=== PATIENT | male | born 1950 | race Caucasian/White ===

== ENCOUNTER → 2017-03-04 | Outpatient (CLI) | payer BC ==
[~2017-03-04] MED LIST: ASPI81TA28 PO; FISHOIL PO; MULTTAB58 PO; POTA8CAP6 PO; SIMV-151 PO; TRIA75TA53 PO
[2017-03-04 11:14] LABS: ALT/SGPT 30 U/L (12-78); AST/SGOT 14 U/L (15-37); BLOOD UREA NITROGEN 21 mg/dl (7-18); BUN/CREATININE RATIO 17.6 (10-20); CALCIUM 8.9 mg/dl (8.5-10.1); CARBON DIOXIDE 29 mmol/L (21-32); CHLORIDE 107 mmol/L (98-107); GLUCOSE 102 mg/dl (70-99); POTASSIUM 3.7 mmol/L (3.5-5.1); SODIUM 143 mmol/L (136-145)
[2017-03-04 11:17] LABS: ALB/GLOB RATIO 1.1 (0.9-2); ALKALINE PHOSPHATASE 59 U/L (45-117)
[2017-03-04 12:17] LABS: ESTIMATED AVERAGE GLUCOSE 120 mg/dl; HA1C FLAG Normal (Normal)
--- NOTE | 2017-03-09 11:59 | CODING QUERY MEDICAL NECESSITY ---
SUPPORTING DIAGNOSIS NEEDED Dr. Mcleod, A supporting diagnosis is required for the test/procedure performed on this patient in order for us to be reimbursed by the patient's insurance. Please provide a supporting diagnosis for the following test/procedure listed below next to the test name along with your signature. *If there is no additional diagnosis for this patient that would support the following test/procedure please document that below next to the test/procedure. Test(s)/Procedure(s) that require a supporting diagnosis: * 16866 GLYCATED HEMOGLOBIN DIAGNOSIS: DATE OF SERVICE: 03/04/17 Provider Signature: Date: Thank you Lee Torres [facility] Information Management Once completed, please kindly fax back to [phone] For questions please call [phone]
== END | disposition home or self-care (01) ==
LOC: C.LABBC 09:05
PROVIDERS: ATTEND Family Medicine
DX: I10 Essential (primary) hypertension (principal); R73.03 Prediabetes

== ENCOUNTER → 2017-12-31 | Outpatient (CLI) | payer BC ==
--- NOTE | 2017-12-31 13:09 | DIAGNOSTIC IMAGING REPORT ---
RIBS BILATERAL WITH PA CHEST HISTORY: 67 years-old Male R05 [id number] Rib pain on right [id number] acute cough with right-sided rib pain COMPARISON: Chest radiograph 07/16/2015 TECHNIQUE: PA view of the chest with multiple views of the bilateral ribs for a total of 10 images FINDINGS: Cardiomediastinal and hilar silhouettes are within normal limits. Atherosclerosis of the aorta. There is no pneumothorax, pleural effusion, focal airspace consolidation or overt pulmonary edema. Degenerative changes are seen within the shoulders and spine. Remote left mid clavicle fracture. No acute displaced rib fracture identified. IMPRESSION: 1. No acute process of the chest. 2. No acute displaced rib fracture or pneumothorax identified. The above report was generated using voice recognition software. It may contain grammatical, syntax or spelling errors. Electronically signed by: Christopher Jimenez M.D. 12/31/2017 1:08 PM Dictated Date/Time: 12/31/2017 1:05 PM
== END | disposition home or self-care (01) ==
LOC: C.RADBC 12:36
PROVIDERS: ATTEND Nurse Practitioner Adult Health
DX: R05 Cough (principal); R07.81 Pleurodynia

== ENCOUNTER → 2018-01-05 | Outpatient (CLI) | payer BC ==
--- NOTE | 2018-01-05 11:28 | DIAGNOSTIC IMAGING REPORT ---
BILIARY ULTRASOUND CLINICAL HISTORY: R07.81 Rib pain on right side R10.811 Right upper quadrant abdominal pain COMPARISON STUDY: CT scan performed April 2012, renal ultrasound March 2016 FINDINGS: The pancreas was obscured. The liver was of increased echogenicity a finding suggestive of hepatic steatosis. There is a 1 cm right lobe hepatic cyst. No gallstones are visualized. There is no ductal dilatation. The common bile duct measures 5 mm. There is no right-sided hydronephrosis. There is a septated lower pole right renal cyst measuring 9 cm. This remains unchanged from a prior ultrasound performed March 2016 IMPRESSION: 1. Nondiagnostic evaluation the pancreas 2. Probable hepatic steatosis 3. Ultrasonographically normal gallbladder. No ductal dilatation 4. Stable septated lower pole right renal cyst measuring 9 cm Electronically signed by: Kevin Dubois M.D. 01/05/2018 11:27 AM Dictated Date/Time: 01/05/2018 11:25 AM
== END | disposition home or self-care (01) ==
LOC: C.ULTR 10:20
PROVIDERS: ATTEND Nurse Practitioner Adult Health
DX: R07.81 Pleurodynia (principal); R10.811 Right upper quadrant abdominal tenderness; N28.1 Cyst of kidney, acquired

== ENCOUNTER → 2018-02-25 | Outpatient (CLI) | payer BC ==
[2018-02-25 11:21] LABS: ALBUMIN 3.7 gm/dl (3.4-5.0); ALKALINE PHOSPHATASE 63 U/L (45-117); ALT/SGPT 34 U/L (12-78); AST/SGOT 20 U/L (15-37); BLOOD UREA NITROGEN 20 mg/dl (7-18); CALCIUM 9.1 mg/dl (8.5-10.1); CARBON DIOXIDE 27 mmol/L (21-32); GLUCOSE 105 mg/dl (70-99); LIPASE 116 U/L (73-393); POTASSIUM 3.1 mmol/L (3.5-5.1); SODIUM 139 mmol/L (136-145)
== END | disposition home or self-care (01) ==
LOC: C.LABBC 08:03
PROVIDERS: ATTEND Nurse Practitioner Adult Health
DX: R10.811 Right upper quadrant abdominal tenderness (principal)

== ENCOUNTER → 2018-03-10 | Outpatient (CLI) | payer BC ==
[2018-03-10 11:29] LABS: BLOOD UREA NITROGEN 21 mg/dl (7-18); CREATININE 1.22 mg/dl (0.60-1.40); GLUCOSE 95 mg/dl (70-99)
[2018-03-10 11:30] LABS: CALCIUM 8.9 mg/dl (8.5-10.1); CARBON DIOXIDE 30 mmol/L (21-32); POTASSIUM 3.7 mmol/L (3.5-5.1); SODIUM 140 mmol/L (136-145)
== END | disposition home or self-care (01) ==
LOC: C.LABBC 07:45
PROVIDERS: ATTEND Physician Assistant Medical
DX: I10 Essential (primary) hypertension (principal); E87.6 Hypokalemia

== ENCOUNTER 2022-06-12 10:55 | Inpatient (IN) ==
--- NOTE | 2022-06-12 11:34 | CT Scan Report ---
CT head/brain wo con CLINICAL HISTORY: 72 years-old Male with Stroke Alert. Acute strokelike symptoms TECHNIQUE: Multiple axial CT images of the head were obtained without contrast. A dose lowering tech nique was utilized adhering to the principles of ALARA. CT DOSE: 537.48 mGy.cm COMPARISON: None. FINDINGS: No acute intracranial hemorrhage, midline shift, intracranial mass, hydrocephalus, territorial ischem ia or abnormal extra-axial collection. Mild involutional changes. White matter hypodensities suggest chronic microvascular ischemic disease. Cerebral vascular calcifications also noted. The calvarium is intact. The paranasal sinuses, mastoid air cells, and middle ear cavities are clear . IMPRESSION: No acute intracranial abnormality. ACT 112: Negative or not required by law. The above report was generated using voice recognition software. It may contain grammatical, syntax o r spelling errors. Electronically signed by: Terence Jimenez M.D. 06/12/2022 11:32 AM
[2022-06-12 11:41] LABS: Hematocrit (blood only) 44.4 % (40.1-51.0); Hemoglobin 14.4 g/dl (14.0-18.0); Mean Corpuscular Hemoglobin 30.4 pg (25.0-34.0); Mean Corpuscular Hgb Conc 32.4 g/dL (32.0-36.0); Mean Corpuscular Volume 93.9 fL (80.0-100.0); Mean Platelet Volume 8.8 fL (9.4-12.4); Platelet Count 189 K/uL (130-400); RDW Coefficient of Variation 13.4 % (11.5-14.5); RDW Standard Deviation 46.3 fL (36.4-46.3); Red Blood Count 4.73 M/uL (4.63-6.08); White Blood Count 6.22 K/ul (4.8-10.8)
--- NOTE | 2022-06-12 11:42 | Emergency Department Note ---
History of Present Illness General Chief complaint: Neuro Symptoms/Deficit Stated complaint: BLURRED VISION, REF BY DR OG BAZAN SYMPTOMS Time Seen by Provider: 06/12/22 11:24 Source: patient, RN notes reviewed and old records reviewed Mode of arrival: ambulatory Limitations: no limitations History of Present Illness Patient is a 72-year-old male who was sent over to the emergency department by 's office after having strokelike symptoms he was fine yesterday woke up at 7:00 in the morning with blurry vision in both of his eyes. He says when he closes 1 eye it still blurry so is definitely both he says he describes it as no particular visit visual field cut he says is not tunnel vision he says when he reads a word he can see the beginning of it but he can see the end and he can see 1 side versus the other. Denies headache or head trauma. No recent illness. no fever chills. no numbness or weakness or difficulty speaking or s wallowing. no chest pain or shortness of breath. he does take a baby aspirin 81 mg a day. He feels slightly off balance he thinks due to his vision he has no history of visual problems. No eye pain. He said the eye doctor did a full eye evaluation and did not think it was ocular. Home Medications Medication Instructions Recorded Confirmed Type multivitamin (Daily Multi-Vitamin 1 tab PO QAM 04/25/19 06/12/22 History tablet) omega 9-zqa-nwc-fish oil 1,000 mg 2 cap PO BID 09/10/20 06/12/22 History (120 mg-180 mg) capsule sildenafil 100 mg tablet 100 mg PO .COMPLEX PRN sexual 11/28/21 06/12/22 Rx activity #18 tabs lisinopril 40 mg tablet 40 mg PO QAM #90 tabs 05/29/22 06/12/22 Rx potassium chloride 20 mEq 20 meq PO QAM #90 tabs 05/29/22 06/12/22 Rx tablet,extended release simvastatin 40 mg tablet 20 mg PO QPM #90 tabs 05/29/22 06/12/22 Rx spironolactone 25 mg tablet 25 mg PO DAILY #90 tabs 05/29/22 06/12/22 Rx aspirin 81 mg tablet,delayed 81 mg PO QPM 06/12/22 06/12/22 History release Allergies Allergy/AdvReac Type Severity Reaction Status Date / Time bacitracin AdvReac Intermediate neosporin Verified 06/12/22 15:15 - skin irritation neomycin AdvReac Intermediate neosporin Verified 06/12/22 15:15 - skin irritation polymyxin B AdvReac Intermediate neosporin Verified 06/12/22 15:15 - skin irritation Past Med/Surg History Medical History Benign prostatic hyperplasia with urinary obstruction and other lower urinary tract symptoms Colon polyp Cyst of right kidney Encounter for pre-operative examination History of COVID-19 11/29/20. symptoms: cough and loss of taste/smell. History of DVT (deep vein thrombosis) ~2011 Right leg DVT r/t extensive traveling at the time. no anticoagulants currently needed. Hx of malignant neoplasm of skin Hyperlipidemia Hypertension Inhibited sexual excitement Prediabetes pt denies Sleep apnea cpap Surgical History H/O arthroscopic knee surgery History of colonoscopy History of hip replacement right History of local excision of skin lesion Family History Father Heart disease Other No family history of adverse response to anesthesia Denies family history of Ovarian cancer Prostate cancer Myocardial infarction Breast cancer Colorectal cancer Social History Smoking Status: Never smoker Second Hand Exposure: No; Hx Alcohol Use: No Hx Substance Use: No Preferred Language: Malaysian Communication Ability: Effective Visual Impairment: No Limitations Hearing Ability: Normal Chief Knowledge Officer Required: No Beliefs That Will Affect Care: None marital status: Current Living Situation: Spouse Current Living Situation Comment: home with spouse. current occupational status: retired Other Information That Helps Us Care for You: No Feels Safe at Home: Yes Safety Concerns: Feels Safe At This Time Childhood Exposure to Second-Hand Smoke: No caffeine: Yes during the past year weight has: remained stable Dental Care, Regularly: Yes Physical Activity Frequency: 3-4 Times per Week Seatbelt Use: always Sunscreen Use: Yes Assistive Devices: Glasses Review of Systems A total of 10 systems reviewed and were otherwise negative Physical Exam Vital Signs Vital Signs - 24 hr 06/12/22 10:56 06/12/22 11:53 06/12/22 12:15 Temperature 36.8 C Temperature Source Temporal Artery Scan Pulse Rate 67 Pulse Rate [Apical] 62 64 Respiratory Rate 16 16 18 Respiratory Effort / Characteristics Non-Labored Spontaneous Non-Labored Spontaneous Non-Labored Spontaneous Respiratory Depth Normal Normal Normal Blood Pressure 112/67 Blood Pressure [Right Arm] 122/70 126/75 Blood Pressure Mean 82 Blood Pressure Mean [Right Arm] 87 92 Pulse Oximetry 95 96 96 Oxygen Delivery Method Room Air Room Air Room Air Sepsis Recent Fever Within 48 Hours No Sepsis New/Unexplained Change in Mental Status No Sepsis Action Taken by Nursing No Action Required General: Well developed well nourished older male who appears in no acute distress, breathing comfortably on room air. Normal speech HEENT: Normal cephalic atraumatic. Pupils are equal round and reactive to light. Extraocular movements are intact. Oropharynx is pink with moist mucous membranes. No swelling of the mouth lips or tongue. Neck: Supple with a midline trachea. No meningeal signs or stiffness, no JVD or bruits. No Stridor. Chest: Clear to auscultation bilaterally. No wheezes or rhonchi. No increased work of breathing. Heart: Regular rate and rhythm without murmurs or gallops. Abdomen: Soft nontender, nondistended without rebound guarding or rigidity. Extremities: No cyanosis clubbing or edema. No calf tenderness or assymetry Spine/Back. Non tender to palpation. No CVA tenderness Skin: Good turgor without rashes. Neurologic exam: Cranial nerves two through 12 are intact. Motor and sensation are intact and symmetrical throughout. Course Administered Medications Sodium Chloride (Nss 1000ml) 1,000 mls @ 150 mls/hr IV .[id number] [facility] Stop: 06/12/22 20:24 Last Admin: 06/12/22 14:01 Dose: 150 mls/hr Documented By: NMS Discontinued Medications Ioversol (Optiray 320 125ml) 120 ml IV ONCE ONE Stop: 06/12/22 11:54 Last Admin: 06/12/22 11:53 Dose: 120 ml Documented By: RACHEL Critical Care Time Critical Care Time: Yes Total Critical Care Time: 36 Due to the patient's acute strokelike symptoms, need to call a stroke alert, multiple imaging and consultation as well as consideration for tPA and other acute interventions as well as frequent reassessment, I have personally spent greater than 36 minutes of critical care time in the direct management of this patient. This includes bedside care, interpretation of diagnostic studies, and testing, discussion with consultants, patient, and family members, and other required patient management activities. This 30 minutes is in excess of all separately billable procedures. Medical Decision Making Differential Diagnosis Stroke, acute neurologic disease, ocular disease, MS, intracranial mass or hemorrhage, electrolyte or metabolic abnormality Medical Records Attestation: I reviewed the patient's medical records. Home Medications Current Medication List: was personally reviewed by me Laboratory Data Attestation: I reviewed the patient's lab results. Result diagrams: 06/12/22 11:25 06/12/22 11:25 Lab Results 06/12/22 06/12/22 06/12/22 Range/Units 11:25 11:25 11:25 WBC 6.22 (4.8-10.8) K/ul RBC 4.73 (4.63-6.08) M/uL Hgb 14.4 (14.0-18.0) g/dl POC Hgb (14.0-18.0) g/dl Hct 44.4 (40.1-51.0) % POC Hct (42-52) % MCV 93.9 (80.0-100.0) fL MCH 30.4 (25.0-34.0) pg MCHC 32.4 (32.0-36.0) g/dL RDW Std Deviation 46.3 (36.4-46.3) fL RDW Coeff of Markell 13.4 (11.5-14.5) % Plt Count 189 (130-400) K/uL MPV 8.8 L (9.4-12.4) fL PT 10.8 (9.0-12.0) Seconds INR 1.0 (0.9-1.1) APTT 23.9 (21.0-31.0) Seconds PTT Ratio 0.9 POC Sodium (135-144) mmol/L Sodium 137 (136-145) mmol/L POC Potassium (3.3-5.0) mmol/L Potassium 4.3 (3.5-5.1) mmol/L POC Chloride (101-112) mmol/L Chloride 106 (98-107) mmol/L Carbon Dioxide 24 (21-32) mmol/L POC Total CO2 (24-31) mmol/L Anion Gap 7 (3-11) POC Anion Gap (16-25) mmol/L POC BUN (7-18) mg/dl BUN 31 H (6-23) mg/dl Creatinine 1.42 H (0.6-1.4) mg/dl POC Creatinine (0.6-1.3) mg/dl Est Cr Clr Drug Dosing 50.6 ml/min Est GFR ( Amer) 56.0 ml/min Est GFR (Non-Af Amer) 48.3 ml/min BUN/Creatinine Ratio 21.8 H (10-20) Glucose 108 H (70-99(Fasting)) mg/dl POC Glucose (other) (70-99) mg/dl Calcium 9.5 (8.5-10.1) mg/dl POC Ioniz Calcium Chuy (1.12-1.32) mmol/l Magnesium 1.9 (1.7-2.4) mg/dl Total Bilirubin 0.6 (0.2-1.0) mg/dl AST 18 (13-39) U/L ALT 19 (7-52) U/L Alkaline Phosphatase 55 (34-104) U/L Troponin I High Sens (0-20) pg/ml Total Protein 6.7 (6.0-8.3) gm/dl Albumin 4.1 (3.4-5.0) gm/dl Globulin 2.6 (2.5-4.0) gm/dl Albumin/Globulin Ratio 1.6 (0.9-2) SARS-CoV-2, RNA, NAAT (NEGATIVE) 06/12/22 06/12/22 06/12/22 Range/Units 11:25 11:35 11:52 WBC (4.8-10.8) K/ul RBC (4.63-6.08) M/uL Hgb (14.0-18.0) g/dl POC Hgb 14.6 (14.0-18.0) g/dl Hct (40.1-51.0) % POC Hct 43 (42-52) % MCV (80.0-100.0) fL MCH (25.0-34.0) pg MCHC (32.0-36.0) g/dL RDW Std Deviation (36.4-46.3) fL RDW Coeff of Markell (11.5-14.5) % Plt Count (130-400) K/uL MPV (9.4-12.4) fL PT (9.0-12.0) Seconds INR (0.9-1.1) APTT (21.0-31.0) Seconds PTT Ratio POC Sodium 140 (135-144) mmol/L Sodium (136-145) mmol/L POC Potassium 4.5 (3.3-5.0) mmol/L Potassium (3.5-5.1) mmol/L POC Chloride 107 (101-112) mmol/L Chloride (98-107) mmol/L Carbon Dioxide (21-32) mmol/L POC Total CO2 23 L (24-31) mmol/L Anion Gap (3-11) POC Anion Gap 15.0 L (16-25) mmol/L POC BUN 30 H (7-18) mg/dl BUN (6-23) mg/dl Creatinine (0.6-1.4) mg/dl POC Creatinine 1.5 H (0.6-1.3) mg/dl Est Cr Clr Drug Dosing ml/min Est GFR ( Amer) ml/min Est GFR (Non-Af Amer) ml/min BUN/Creatinine Ratio (10-20) Glucose (70-99(Fasting)) mg/dl POC Glucose (other) 112 H (70-99) mg/dl Calcium (8.5-10.1) mg/dl POC Ioniz Calcium Chuy 1.22 (1.12-1.32) mmol/l Magnesium (1.7-2.4) mg/dl Total Bilirubin (0.2-1.0) mg/dl AST (13-39) U/L ALT (7-52) U/L Alkaline Phosphatase (34-104) U/L Troponin I High Sens 5.1 (0-20) pg/ml Total Protein (6.0-8.3) gm/dl Albumin (3.4-5.0) gm/dl Globulin (2.5-4.0) gm/dl Albumin/Globulin Ratio (0.9-2) SARS-CoV-2, RNA, NAAT NEGATIVE (NEGATIVE) Imaging Data Attestation: I personally reviewed and interpreted this imaging study as follows: My Impression: CTno acute mass or hemorrhage seen Radiologist's Impression: Head CT 06/12/22 11:06 CT head/brain wo con CLINICAL HISTORY: 72 years-old Male with Stroke Alert. Acute strokelike symptoms TECHNIQUE: Multiple axial CT images of the head were obtained without contrast. A dose lowering technique was utilized adhering to the principles of ALARA. CT DOSE: 537.48 mGy.cm COMPARISON: None. FINDINGS: No acute intracranial hemorrhage, midline shift, intracranial mass, hydrocephalus, territorial ischemia or abnormal extra-axial collection. Mild involutional changes. White matter hypodensities suggest chronic microvascular ischemic disease. Cerebral vascular calcifications also noted. The calvarium is intact. The paranasal sinuses, mastoid air cells, and middle ear cavities are clear. IMPRESSION: No acute intracranial abnormality. ACT 112: Negative or not required by law. The above report was generated using voice recognition software. It may contain grammatical, syntax or spelling errors. Electronically signed by: Terence Jimenez M.D. 06/12/2022 11:32 AM Head CTA 06/12/22 11:35 CT angio head w con, CT angio neck with con CLINICAL HISTORY: 72 years-old Male with Visual changes-strokelike symptoms. Acute strokelike symptoms COMPARISON STUDY: Head CT of same day TECHNIQUE: Following the IV administration of 120 cc of Optiray, CT angiogram of the head and neck was performed from the skull base to the apex. Images are reviewed in the axial, sagittal, and coronal planes. 3-D MIPS images are created and assessed. IV contrast was administered without complication. All measuremen ts were obtained according to NASCET criteria. A dose lowering technique was utilized adhering to the principles of ALARA. CT DOSE: 636.97 mGy.cm FINDINGS: Three-vessel morphology of the thoracic aortic arch. Patency of the innominate a nd imaged subclavian arteries. Mild atherosclerotic plaque of the right carotid bulb and proximal right ICA without significant stenosis. The anterior and middle cerebral arteries are also patent. Dominant right vertebral artery. Diminutive left vertebral artery, likely developmental terminates into the left PICA. Tortuosity of the basilar artery. Posterior cerebral arteries are patent. The cerebral venous sinuses are patent. No aneurysm, dissection, high-grade stenosis or arterial occlusion. No abnormal intracranial enhancement. The lung apices are clear. No pneumothorax. Unremarkable soft tissues. Streak artifact from dental amalgam hardware. Mild mucoperiosteal thickening of the maxillary sinuses. No acute fracture. IMPRESSION: Unremarkable CTA of the head and neck without aneurysm, dissection, high-grade stenosis or arterial occlusion. ACT 112: Negative or not required by law. The above report was generated using voice recognition software. It may contain grammatical, syntax or spelling errors. Electronically signed by: Terence Jimenez M.D. 06/12/2022 12:33 PM Neck CTA 06/12/22 11:35 CT angio head w con, CT angio neck with con CLINICAL HISTORY: 72 years-old Male with Visual changes-strokelike symptoms. Acute strokelike symptoms COMPARISON STUDY: Head CT of same day TECHNIQUE: Following the IV administration of 120 cc of Optiray, CT angiogram of the head and neck was performed from the skull base to the apex. Images are reviewed in the axial, sagittal, and coronal planes. 3-D MIPS images are created and assessed. IV contrast was administered without complication. All measurements were obtained according to NASCET criteria. A dose lowering technique was utilized adhering to the principles of ALARA. CT DOSE: 636.97 mGy.cm FINDINGS: Three-vessel morphology of the thoracic aortic arch. Patency of the innominate and imaged subclavian arteries. Mild atherosclerotic plaque of the right carotid bulb and proximal right ICA without significant stenosis. The anterior and mi ddle cerebral arteries are also patent. Dominant right vertebral artery. Diminutive left vertebral artery, likely developmental terminates into the left PICA. Tortuosity of the basilar artery. Posterior cerebral arteries are patent. The cerebral venous sinuses are patent. No aneurysm, dissection, high-grade stenosis or arterial occlusion. No abnormal intracranial enhancement. The lung apices are clear. No pneumothorax. Unremarkable soft tissues. Streak artifact from dental amalgam hardware. Mild mucoperiosteal thickening of the maxillary sinuses. No acute fracture. IMPRESSION: Unremarkable CTA of the head and neck without aneurysm, dissection, high-grade stenosis or arterial occlusion. ACT 112: Negative or not required by law. The above report was generated using voice recognition software. It may contain grammatical, syntax or spelling errors. Electronically signed by: Terence Jimenez M.D. 06/12/2022 12:33 PM Brain MRI 06/12/22 12:23 MRI OF THE BRAIN WITHOUT CONTRAST CLINICAL HISTORY: Blurred vision. Evaluate for stroke. COMPARISON STUDY: Head CT and CTA of the head performed earlier today. TECHNIQUE: Utilizing a 1.5 Coreen magnet and dedicated coil, multiplanar, multiecho imaging of the brain was performed without IV contrast. FINDINGS: There is a 3.4 x 2 cm focus of restricted diffusion within right parietooccipital region consistent with acute infarct. There is minimal associated edema at this time. There is no mass effect or evidence for hemorrhage. No additional foci of acute infarction are present. Ventricular system is unremarkable. Basal cisterns are patent. There are no extra-axial collections. No intracranial masses identified on this unenhanced exam. Numerous white matter T2 hyperintense foci favor small vessel disease. Calvarial signal is within normal limits. There is mild sinus mucosal thickening. IMPRESSION: 3.4 x 2 cm right parietooccipital acute infarct. Mild edema. No mass effect or hemorrhage. ACT 112: Negative or not required by law. Electronically signed by: Lamont Laird M.D. 06/12/2022 2:17 PM ECG Data Attestation: I personally reviewed and interpreted this ECG as follows: Indication: + weakness Rate (beats per minute): 58 Rhythm: + normal sinus ECG Intervals/blocks: + Normal QRS, + Normal QT and + Normal HI ECG [place]: + Normal ECG ST segments: + Normal ST segments ECG Findings: no PACs or no PVCs Comparison ECG Date: from (07/16/15) Change: no significant change MDM Narrative This patient comes in as described above he came through triage his eye doctor sent him over for blurry vision in both eyes. The started acutely at 7:00 which is his last known well he woke up this way in fact. He had blood work drawn done in triage and CT I saw him when he came back. I was concerned about his symptoms being neurologic as the eye doctor did not think it was related to his eye and it seems like he cannot see the beginning of words in certain sides where he may have visual field cut on the left. He has no other neurologic deficits. I did call a stroke alert and talk to Dr. Braun, who is the stroke neurologist for telestroke, he has evaluated the patient and did recommend we admit the patient for MRI and further stroke type work-up. His initial CTs are unremarkable he has nothing to suggest A. fib or ischemia COVID testing was negative. he has no significant electrolyte or metabolic abnormalities. The patient is not a tPA candidate as he is well outside the window and extended window. There is no large vessel disease which would be amenable to intervention. I did consult Dr. Hoang from the hospitalist group to see the patient in the ED. The MRI did come back positive for cute infarct in the right occipital area. Impression & Plan Acute CVA (cerebrovascular accident), Visual changes, Lab test negative for COVID-19 virus, Hypertension Discharge Plan Visit Data Chief Complaint: Neuro Symptoms/Deficit Stated Complaint: BLURRED VISION, REF BY DR FOR BENI SYMPTOMS ED Provider: Chris Lock Discharge Problem: Acute CVA (cerebrovascular accident), Visual changes, Lab test negative for COVID-19 virus, Hypertension Patient Disposition: Admitted As Inpatient Discharge Instructions Interventions: ED Discharge Assessment Last Done: 06/12/22 16:20 : Hypertension Qualifiers: Hypertension type: unspecified Qualified Code(s): I10 - Essential (primary) hypertension
[2022-06-12 11:47] LABS: iSTAT Creatinine 1.5 mg/dl (0.6-1.3); iSTAT Hemoglobin 14.6 g/dl (14.0-18.0); iSTAT Ionized Calcium 1.22 mmol/l (1.12-1.32); iSTAT Potassium 4.5 mmol/L (3.3-5.0)
[2022-06-12] MEDS ORDERED: OPTIRAY 320 125ml IV ONE (11:53)
[2022-06-12 11:55] LABS: Partial Thromboplastin Ratio 0.9; Partial Thromboplastin Time 23.9 Seconds (21.0-31.0); Prothrombin Time 10.8 Seconds (9.0-12.0)
--- NOTE | 2022-06-12 12:06 | History & Physical Report ---
Date of Service June 12, 2022 Assessment & Plan (1) Blurry vision, bilateral: Plan: Stroke alert, blurry vision. Suspected occipital TIA vs CVA - Symptom Onset: 7 AM, on waking next - Last Known Normal: Evening prior to going to sleep - Initial Symptoms: Bilateral blurry vision,? Acutely worsened balance. Saw ophthalmology morning of symptom onset which was normal and not thought to be ocular per ER report. Patient had been previously established with ophthal mology for lesions of right eye both eyelids, left eye lower eyelid s/p excision 02/26/2022 and with chalazion of the left lower lobe last noted 03/17/2022. 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 - hsTrop: 5.1 - Admitting EKG: Sinus bradycardia, MD 160, QRS 88, QTc 429. No change compared to prior. No acute ST segment changes/T wave inversion No leukocytosis. Hemoglobin normal. Ionized calcium normal. - Baseline Cr: ~1.0-1.4 - Admitting Cr: 1.42, BUN/creatinine ratio 21.8 - Echo pending TSH pending, last normal 11/2021 - Lipids pending - TPA: Not indicated, last known normal greater than 4.5 hours prior - Telestroke: Seen by telestroke neurology, subtle left lower field cut appreciated during evaluation. Suspected occipital CVA versus TIA. No tPA indicated. Recommended for MRI. Given that patient was on CHIEF OPERATOR aspirin we will switch to Plavix - Convert simvastatin 20mg to atorvastatin 20mg Renal azotemia versus ALEXANDRO Creatinine very slightly elevated above baseline, 1.4 to Elevated BUN/creatinine ratio 21.8 Clinically slightly volume depleted, tacky mucous membranes. Received contrast for above. 1000cc x 1 NSS IVFM supplement @150/hr given Once passes speech eval, encourage p.o. fluids BMP qAM Hyperlipidemia CHIEF OPERATOR simvastatin 20 mg daily Lipids 05/29/2022: Cholesterol 154, LDL 85, HDL 50, triglycerides 96, Chol/HDL ratio 3.1. Hypertension CHIEF OPERATOR lisinopril 40 mg, spironolactone 25 mg CHIEF OPERATOR aspirin 81 mg daily, switching to Plavix as noted We will switch lisinopril to losartan for history of dry cough Hold antihypertensives tonight for mild azotemia and normotension, may resume tomorrow if creatinine normalizes Prediabetes A1c 05/29/2022 6.1% BMP every morning, trend BSG. If persistently greater than 140, will add SSI Hypokalemia On CHIEF OPERATOR potassium supplementation - continue 20meq KCL PO daily after passing speech/no longer NPO Right heel pain Following with podiatry Suspected plantar fasciitis Sleep apnea CPAP nightly DVT prophylaxis: SCDs, SQ Heparin due to mild creatinine increase CODE STATUS: Full code Disposition: Med/telemetry for CVA monitoring Diet: Regular. If hyperglycemic, switch to DM2 and add SSI (2) Hyperlipidemia: (3) Hypertension: (4) Hypokalemia: (5) Prediabetes: (6) Sleep apnea: History of Present Illness Primary Care Provider: Vianca Leyva DO Akshat is a 72-year-old male with a past medical history of BPH with LUTS, hyperlipidemia, hypertension, prediabetes, sleep apnea, and COVID-19 who presents to the emergency department as a stroke alert. 7am blurry vision Saw opthamologist at [facility], was referred to ER after full exam No headache, no numbness, no tingling, no weakness VIsion blurry when waking, couldn't read the end of a word just the beginning. No bright spots, no black spots, no field cuts that he noticed. Persisted for several hours. Did not have floaters. Symptoms were bilateral, vision remained blurry when covering each alternating eye. Vision is now completely back to normal. Seems to have returned ~ noontime. Lasted around 4 hours overall. No chest pain, chest pressure, or shortness of breath No fevers, chills, sweats No recent illnesses, diarrhea, or constipation. Last URI was a few weeks ago, self limited congestion/cough which improved but has a lingering dry cough. Has been on lisinopril for many years. No history of strokes, no heart attacks, no hx of arrythmia to his knowledge. +HLD.. No history of statin intolerance or sensitivity Medical History: Reviewed Medications: Reviewed Surgical History: Reviewed Allergies: Reviewed. Skin irritation w/ neosporin. Social History: No tobacco produce use current or former. Social, 2-3 times per month. No MM/recreational drug use. Code Status: Surrogate DM would be his . [phone]. Full Code. Allergies Allergy/AdvReac Type Severity Reaction Status Date / Time bacitracin AdvReac Unknown neosporin Verified 05/29/22 07:15 - skin irritation neomycin AdvReac Unknown neosporin Verified 05/29/22 07:15 - skin irritation polymyxin B AdvReac Unknown neosporin Verified 05/29/22 07:15 - skin irritation Home Medications Medication Instructions Recorded Confirmed Type multivitamin (Daily Multi-Vitamin 1 tab PO QAM 04/25/19 05/29/22 History tablet) aspirin 81 mg tablet 81 mg PO QPM 05/23/19 05/29/22 History omega 5-lzh-zje-fish oil 1,000 mg 2 cap PO BID 09/10/20 05/29/22 History (120 mg-180 mg) capsule sildenafil 100 mg tablet 100 mg PO .COMPLEX PRN sexual 11/28/21 05/29/22 Rx activity #18 tabs lisinopril 40 mg tablet 40 mg PO QAM #90 tabs 05/29/22 05/29/22 Rx potassium chloride 20 mEq 20 meq PO QAM #90 tabs 05/29/22 05/29/22 Rx tablet,extended release simvastatin 40 mg tablet 20 mg PO QPM #90 tabs 05/29/22 05/29/22 Rx spironolactone 25 mg tablet 25 mg PO DAILY #90 tabs 05/29/22 05/29/22 Rx Past Med/Surg History Medical History Benign prostatic hyperplasia with urinary obstruction and other lower urinary t ract symptoms Colon polyp Cyst of right kidney Encounter for pre-operative examination History of COVID-19 11/29/20. symptoms: cough and loss of taste/smell. History of DVT (deep vein thrombosis) ~2011 Right leg DVT r/t extensive traveling at the time. no anticoagulants currently needed. Hx of malignant neoplasm of skin Hyperlipidemia Hypertension Inhibited sexual excitement Prediabetes pt denies Sleep apnea cpap Surgical History H/O arthroscopic knee surgery History of colonoscopy History of hip replacement right History of local excision of skin lesion Family History Father Heart disease Other No family history of adverse response to anesthesia Denies family history of Ovarian cancer Prostate cancer Myocardial infarction Breast cancer Colorectal cancer Social History Smoking Status: Never smoker Second Hand Exposure: No; Hx Alcohol Use: No Hx Substance Use: No Preferred Language: Cameroonian Communication Ability: Effective Visual Impairment: No Limitations Hearing Ability: Normal Rapier Insertion Loom Fixer Required: No Beliefs That Will Affect Care: None marital status: Current Living Situation: Spouse current occupational status: retired Feels Safe at Home: Yes Childhood Exposure to Second-Hand Smoke: No caffeine: Yes during the past year weight has: remained stable Dental Care, Regularly: Yes Physical Activity Frequency: 3-4 Times per Week Seatbelt Use: always Sunscreen Use: Yes Assistive Devices: Glasses Review of Systems Review of Systems: All systems reviewed & are unremarkable except as noted in Subjective Physical Exam Physical Exam: General: A&Ox3. NAD. Cooperative. HEENT: Atraumatic, normocephalic. Pulm: CTAB A&P. -wheezes, -rales, -rhonchi. Symmetrical chest rise. No increased work of breathing. No respiratory distress. Cardiac: RRR, -mrg. Radial pulses intact and symmetrical. Abdominal: Nontender, nondistended, soft. BS present. CRANIAL NERVES: II: Pupils equal and reactive, no relative afferent pupillary defect, no VF cuts. Wearing corrective leneses, normal sharp vision while wearing these. III, IV, : EOM intact, no gaze preference or deviation, no nystagmus. V: normal sensation in V1, V2, and V3 segments bilaterally VII: no asymmetry, no nasolabial fold flattening VIII: normal hearing to speech IX, X: normal palatal elevation, no uvular deviation XI: 5/5 head turn and 5/5 shoulder shrug bilaterally XII: midline tongue protrusion MOTOR: RUE: 5/5 Shoulder internal rotation, external rotation, flexion, extension, abduction, adduction 5/5 Elbow flexion/extension, wrist flexion/extension 5/5 small engine mechanic strength, finger flexion/extension, interosseus LUE: 5/5 Shoulder internal rotation, external rotation, flexion, extension, abduction, adduction 5/5 Elbow flexion/extension, wrist flexion/extension 5/5 small engine mechanic strength, finger flexion/extension, interosseus RLE: 5/5 to hip flexion/extension, knee flexion/extension, ankle dorsiflexion/plantarflexion LLE: 5/5 to hip flexion/extension, knee flexion/extension, ankle dorsiflexion/plantarflexion REFLEXES: 2/4 patellar DTR without asymmetry. no clonus SENSORY: Normal to touch in upper and lower extremities without deficit or asymmetry COORD: Normal finger to nose and heel to jimenez, no tremor, no dysmetria Results & Data Results & Data ([facility]) Vital Signs (Past 12 Hours) Vital Signs Temp Pulse Pulse Resp BP BP Pulse Ox 06/12/22 11:53 62 16 122/70 96 06/12/22 10:56 36.8 C 67 16 112/67 95 O2 Del Method 06/12/22 11:53 Room Air 06/12/22 10:56 Room Air PG Care Time/CCT Total # of Minutes Spent Total Time Spent with Patient: Total time spent is greater than 50% in coordination of care (as documented) at patient's floor/unit and/or counseling patient: Coding Level of Care Code 42708 Initial Inpt Care Lvl 2 Diagnoses Blurry vision, bilateral H53.8 Hyperlipidemia E78.5 Hypertension I10 Hypokalemia E87.6 Prediabetes R73.03 Sleep apnea G47.30
[2022-06-12 12:07] LABS: Albumin Globulin Ratio 1.6 (0.9-2); Albumin Level 4.1 gm/dl (3.4-5.0); BUN Creatinine Ratio 21.8 (10-20); Bilirubin,Total 0.6 mg/dl (0.2-1.0); Calcium 9.5 mg/dl (8.5-10.1); Creatinine Clr Calc Pharmacy 50.6 ml/min; Est GFR (Non-African American) 48.3 ml/min; Globulin 2.6 gm/dl (2.5-4.0); Magnesium 1.9 mg/dl (1.7-2.4); Potassium 4.3 mmol/L (3.5-5.1); Total Protein 6.7 gm/dl (6.0-8.3)
--- NOTE | 2022-06-12 12:34 | CT Scan Report ---
CT angio head w con, CT angio neck with con CLINICAL HISTORY: 72 years-old Male with Visual changes-strokelike symptoms. Acute strokelike symp toms COMPARISON STUDY: Head CT of same day TECHNIQUE: Following the IV administration of 120 cc of Optiray, CT angiogram of the head and neck wa s performed from the skull base to the apex. Images are reviewed in the axial, sagittal, and coronal planes. 3-D MIPS images are created and assessed. IV contrast was administered without complication. All measurements were obtained according to NASCET criteria. A dose lowering technique was utilized a dhering to the principles of ALARA. CT DOSE: 636.97 mGy.cm FINDINGS: Three-vessel morphology of the thoracic aortic arch. Patency of the innominate and imaged subclavian arteries. Mild atherosclerotic plaque of the right carotid bulb and proximal right ICA without signif icant stenosis. The anterior and middle cerebral arteries are also patent. Dominant right vertebral a rtery. Diminutive left vertebral artery, likely developmental terminates into the left PICA. Tortuosi ty of the basilar artery. Posterior cerebral arteries are patent. The cerebral venous sinuses are pat ent. No aneurysm, dissection, high-grade stenosis or arterial occlusion. No abnormal intracranial enh ancement. The lung apices are clear. No pneumothorax. Unremarkable soft tissues. Streak artifact from dental am algam hardware. Mild mucoperiosteal thickening of the maxillary sinuses. No acute fracture. IMPRESSION: Unremarkable CTA of the head and neck without aneurysm, dissection, high-grade stenosis o r arterial occlusion. ACT 112: Negative or not required by law. The above report was generated using voice recognition software. It may contain grammatical, syntax o r spelling errors. Electronically signed by: Terence Jimenez M.D. 06/12/2022 12:33 PM
--- NOTE | 2022-06-12 13:43 | Discharge Summary ---
Date of Service June 13, 2022 Admission HPI Per Admitting Provider Akshat is a 72-year-old male with a past medical history of BPH with LUTS, hyperlipidemia, hypertension, prediabetes, sleep apnea, and COVID-19 who presents to the emergency department as a stroke alert. 7am blurry vision Saw opthamologist at [facility], was referred to ER after full exam No headache, no numbness, no tingling, no weakness VIsion blurry when waking, couldn't read the end of a word just the beginning. No bright spots, no black spots, no field cuts that he noticed. Persisted for several hours. Did not have floaters. Symptoms were bilateral, vision remained blurry when covering each alternating eye. Vision is now completely back to normal. Seems to have returned ~ noontime. Lasted around 4 hours overall. No chest pain, chest pressure, or shortness of breath No fevers, chills, sweats No recent illnesses, diarrhea, or constipation. Last URI was a few weeks ago, self limited congestion/cough which improved but has a lingering dry cough. Has been on lisinopril for many years. No history of strokes, no heart attacks, no hx of arrythmia to his knowledge. +HLD.. No history of statin intolerance or sensitivity Medical History: Reviewed Medications: Reviewed Surgical History: Reviewed Allergies: Reviewed. Skin irritation w/ neosporin. Social History: No tobacco produce use current or former. Social, 2-3 times per month. No MM/recreational drug use. Code Status: Surrogate DM would be his . [phone]. Full Code. Principal Diagnosis Right parieto-occipital CVA Discharge Exam General: A&Ox3. NAD. Cooperative. HEENT: Atraumatic, normocephalic. Pulm: CTAB A&P. -wheezes, -rales, -rhonchi. Symmetrical chest rise. No increased work of breathing. No respiratory distress. Cardiac: RRR, -mrg. Radial pulses intact and symmetrical. Abdominal: Nontender, nondistended, soft. BS present. CRANIAL NERVES: II: Pupils equal and reactive, no relative afferent pupillary defect, no VF c uts. Wearing corrective leneses, normal sharp vision while wearing these. III, IV, : EOM intact, no gaze preference or deviation, no nystagmus. V: normal sensation in V1, V2, and V3 segments bilaterally VII: no asymmetry, no nasolabial fold flattening VIII: normal hearing to speech IX, X: normal palatal elevation, no uvular deviation XI: 5/5 head turn and 5/5 shoulder shrug bilaterally XII: midline tongue protrusion MOTOR: RUE: 5/5 Shoulder internal rotation, external rotation, flexion, extension, abduction, adduction 5/5 Elbow flexion/extension, wrist flexion/extension 5/5 medical superintendent strength, finger flexion/extension, interosseus LUE: 5/5 Shoulder internal rotation, external rotation, flexion, extension, abduction, adduction 5/5 Elbow flexion/extension, wrist flexion/extension 5/5 medical superintendent strength, finger flexion/extension, interosseus RLE: 5/5 to hip flexion/extension, knee flexion/extension, ankle dorsiflexion/plantarflexion LLE: 5/5 to hip flexion/extension, knee flexion/extension, ankle dorsiflexion/plantarflexion REFLEXES: 2/4 patellar DTR without asymmetry. no clonus SENSORY: Normal to touch in upper and lower extremities without deficit or asymmetry COORD: Normal finger to nose and heel to jimenez, no tremor, no dysmetria Discharge Data Allergies Allergy/AdvReac Type Severity Reaction Status Date / Time bacitracin AdvReac Intermediate neosporin Verified 06/12/22 15:15 - skin irritation neomycin AdvReac Intermediate neosporin Verified 06/12/22 15:15 - skin irritation polymyxin B AdvReac Intermediate neosporin Verified 06/12/22 15:15 - skin irritation Ordered Studies 06/12/22 11:06 CT head/brain wo con Stat 06/12/22 11:35 CT angio head w con Stat CT angio neck with con Stat 06/12/22 12:23 MRI Brain [MR brain wo con] Stat Hospital Course (1) Blurry vision, bilateral: Akshat is a 72-year-old male who was admitted after waking up with bilateral blurry vision, underwent a outpatient ophthalmology exam which was normal, and was referred to the ER for TIA/CVA work-up. At initial telestroke evaluation there was concern for a left lower field cut. CT head and CTA of the head and neck were normal. He did not meet tPA criteria due to last known normal being the evening prior to going to sleep, and symptoms were improving on their own. His signicantly improved by noon, approximately 4 hours after waking up. MRI showed 3.4 x 2 cm right parietooccipital acute infarct. Mild edema. No mass effect or hemorrhage. At the of discharge his vision was near normal, with some qualitative disturbance but sharp and acuity and with patient able to read words both near and far normally. To do as outpatient: 1. Continue Plavix 75 mg daily instead of aspirin 81 mg 2. Continue atorvastatin 20 mg daily, this replaces his prior simvastatin 3. Continue losartan 50 mg daily, uptitrate to 100 if needed. Patient was switched from lisinopril due to report of dry cough. He was normotensive during admission. 4. Routine PCP follow-up within 1 to 2 weeks. 5. Routine neurology outpatient follow-up. 6. Established with and continue ocular rehab with occupational therapy. Prescription provided at discharge, CM arranging 7. Follow-up final read of echocardiogram, pending at discharge. Patient did not experience A. fib/arrhythmia on telemetry overnight Stroke alert, blurry vision. 2/ CVA - MRI: 3.4 x 2 cm right parietooccipital acute infarct. Mild edema. No mass effect or hemorrhage. - Symptom Onset: 7 AM, on waking next - Last Known Normal: Evening prior to going to sleep - Initial Symptoms: Bilateral blurry vision,? Acutely worsened balance. Saw ophthalmology morning of symptom onset which was normal and not thought to be ocular per ER report. Patient had been previously established with ophthalmology for lesions of right eye both eyelids, left eye lower eyelid s/p excision 02/26/2022 and with chalazion of the left lower lobe last noted 03/17/2022. - History of DM: Prediabetes, A1c 05/2022 6.1% - History of HTN: Yes, on lisinopril 40 mgspironolactone 25 mg QUANTITATIVE EQUITY HEAD - History of HLD: Yes, on simvastatin 20 mg QUANTITATIVE EQUITY HEAD - History Prior CVA: No - History of Afib: No - QUANTITATIVE EQUITY HEAD antiplatelet: Yes, aspirin 81 mg - CT-H: No acute intracranial abnormality, findings suggestive of chronic microvascular disease - CTA-H/N: Unremarkable CTA of the head and neck without aneurysm, dissection, high-grade stenosis or arterial occlusion. - hsTrop: 5.1 - Admitting EKG: Sinus bradycardia, WA 160, QRS 88, QTc 429. No change compared to prior. No acute ST segment changes/T wave inversion No leukocytosis. Hemoglobin normal. Ionized calcium normal. - Baseline Cr: ~1.0-1.4 - Admitting Cr: 1.42, BUN/creatinine ratio 21.8 - Echo pending TSH pending, last normal 11/2021 - Lipids pending - TPA: Not indicated, last known normal greater than 4.5 hours prior - Telestroke: Seen by telestroke neurology, subtle left lower field cut appreciated during evaluation. Suspected occipital CVA versus TIA. No tPA indicated. Recommended for MRI. Follow-up MRI with parieto-occipital infarct right-sided as above Given that patient was on QUANTITATIVE EQUITY HEAD aspirin we will switch to Plavix - Convert simvastatin 20mg to atorvastatin 20mg Renal azotemia versus ALEXANDRO Creatinine very slightly elevated above baseline, 1.42, Elevated BUN/creatinine ratio 21.8 on admission Clinically slightly volume depleted, tacky mucous membranes. Received contrast for above. 1000cc x 1 NSS IVFM supplement @150/hr given on admission Past speech eval, tolerating fluids, creatinine improved Hyperlipidemia QUANTITATIVE EQUITY HEAD simvastatin 20 mg daily converted to atorvastatin Lipids 05/29/2022: Cholesterol 154, LDL 85, HDL 50, triglycerides 96, Chol/HDL ratio 3.1. Hypertension QUANTITATIVE EQUITY HEAD lisinopril 40 mg, spironolactone 25 mg QUANTITATIVE EQUITY HEAD aspirin 81 mg daily, converted to Plavix as noted Lisinopril converted to losartan for history of lingering dry cough Prediabetes A1c 05/29/2022 6.1% Good control, not on pharmacologic management at this time Hypokalemia Continue potassium supplementation Right heel pain Following with podiatry Suspected plantar fasciitis Sleep apnea CPAP nightly (2) Hyperlipidemia: (3) Hypertension: (4) Hypokalemia: (5) Prediabetes: (6) Sleep apnea: Total Time Total Time Spent Total Time Spent (In Minutes): Time spend day of discharge 40 minutes including direct patient care, documentation, review of labs and images, and coordination of care. Discharge Plan Discharge Items Patient Disposition: Home - Self-Care Reason For Visit: VISION LOSS, CVA EVAL Discharge Diagnosis: Parietoocciptal CVA Activity: As commented below Non-emergency contact: Primary Care Provider and Neurologist Follow-up/Referrals: Chris Gamble MD [Physician] - 06/19/22 9:15 am Vianca Leyva DO [Primary Care Provider] - 06/23/22 1:00 pm Diet: Heart Healthy Addtl Attending Provider Instructions: You were seen in the hospital for acute onset of vision change. Your vision returned to normal, and a CT of your head was initially normal. A follow-up MRI showed evidence of a parieto-occipital stroke. Your aspirin has been switched to Plavix as below, your simvastatin has been switched to atorvastatin as below, and your lisinopril has been switched to losartan as below. Follow-up is being arranged for you as an outpatient with your primary care provider and neurology. You have been started on a daily antiplatelet medication to help prevent strokes, called Plavix (clopidogrel). Please take Plavix 75 mg daily. This replaces your prior low-dose aspirin. Your statin medication has been changed to give you better protection against strokes. Please take atorvastatin 20 mg by mouth daily, this replaces your previous simvastatin. Please discuss follow-up blood work with your primary care provider at your follow-up appointment. You have experienced a lingering dry cough which in some patients can be related to lisinopril. Your lisinopril has been switched to losartan 50 mg daily in the morning. This may be increased after period of time to 100 mg every morning if needed, please discuss the dosing of this with your primary care provider at follow-up. A follow-up appointment is being scheduled for you with neurology as above. If you do not receive a call to confirm your appointment within 48 hours, please call their office at the number above. Follow-up appointment is being scheduled for you with your primary care provider. He should be seen within approximately 1 week. If you not receive a call to confirm this appointment within 48 hours, please call your primary care provider at the number above. If you develop any new or worsening symptoms including fever, chills, sweats, chest pain, chest pressure, difficulty breathing, uncontrolled nausea/vomiting, rash, wheezing, passing out or nearly passing out, bleeding, black/bloody bowel movements, or other new or concerning symptoms please call your primary care physician, or call 911 for re-evaluation in the emergency department if you are very concerned. Pending Studies at Discharge: No Stand-Alone Forms: Medications to Prevent Stroke, [employer], Smoking Cessation Medications and DC Order Prescriptions: New losartan 50 mg Tablet 50 mg PO QAM Qty: 30 0RF atorvastatin 20 mg Tablet 20 mg PO QAM Qty: 30 0RF clopidogrel 75 mg Tablet 75 mg PO QAM Qty: 30 0RF Continued sildenafil 100 mg tablet 100 mg PO .COMPLEX PRN (Reason: sexual activity) Qty: 18 3RF Rx Instructions: 100 mg PO one tab 1/2 hour before needed PRN; multivitamin [Daily Multi-Vitamin] tablet 1 tab PO QAM omega 7-cxh-mcc-fish oil 1,000 mg (120 mg-180 mg) capsule 2 cap PO BID potassium chloride 20 mEq tablet extended release 20 meq PO QAM Qty: 90 3RF spironolactone 25 mg tablet 25 mg PO DAILY Qty: 90 3RF Discontinued lisinopril 40 mg tablet 40 mg PO QAM Qty: 90 3RF simvastatin 40 mg tablet 20 mg PO QPM Qty: 90 3RF aspirin 81 mg Tablet,Delayed Release (Dr/Ec) 81 mg PO QPM Discharge Orders: Discharge Order (Routine); Ordered 06/13/22 Ordered By: Gibran Logan Admission Data Admit Date/Time: 06/12/22 13:00 Attending Provider: Gibran Logan Admit Provider: Gibran Logan Primary Care Provider: Vianca Leyva Other Interventions: Discharge Summary Assessment (RN) Last Done: 06/13/22 10:20 Coding Level of Care Code D/C DAY MANAGEMENT >30 MINS Diagnoses Blurry vision, bilateral H53.8 Hyperlipidemia E78.5 Hypertension I10 Hypokalemia E87.6 Prediabetes R73.03 Sleep apnea G47.30
[2022-06-12] MEDS ORDERED: SODIUM CHLORIDE 0.9% 1000ML 1,000 ML IV SCH (13:45)
--- NOTE | 2022-06-12 14:19 | Magnetic Resonance Report ---
MRI OF THE BRAIN WITHOUT CONTRAST CLINICAL HISTORY: Blurred vision. Evaluate for stroke. COMPARISON STUDY: Head CT and CTA of the head performed earlier today. TECHNIQUE: Utilizing a 1.5 Coreen magnet and dedicated coil, multiplanar, multiecho imaging of the bra in was performed without IV contrast. FINDINGS: There is a 3.4 x 2 cm focus of restricted diffusion within right parietooccipital region co nsistent with acute infarct. There is minimal associated edema at this time. There is no mass effect or evidence for hemorrhage. No additional foci of acute infarction are present. Ventricular system is unremarkable. Basal cisterns are patent. There are no extra-axial collections. No intracranial ant s identified on this unenhanced exam. Numerous white matter T2 hyperintense foci favor small vessel d isease. Calvarial signal is within normal limits. There is mild sinus mucosal thickening. IMPRESSION: 3.4 x 2 cm right parietooccipital acute infarct. Mild edema. No mass effect or hemorrhag e. ACT 112: Negative or not required by law. Electronically signed by: Lamont Laird M.D. 06/12/2022 2:17 PM
[2022-06-12] MEDS ORDERED: ACETAMINOPHEN 325 MG TAB PO PRN (16:41)
[2022-06-12] MEDS ORDERED: ONDANSETRON INJ 2 MG/ML 2 ML VIAL IV PRN (16:41)
[2022-06-12] MEDS ORDERED: POLYETHYLENE (MIRALAX) 17 GM PACK PO PRN (16:41)
[2022-06-12] MEDS ORDERED: PHARMACIST DISCHARGE MED REC CONSULT PRN (16:41)
[2022-06-13] MEDS ORDERED: LOSARTAN POTASSIUM 50 MG TAB PO SCH (09:00)
[2022-06-13] MEDS ORDERED: SPIRONOLACTONE 25 MG TAB PO SCH (09:00)
[2022-06-13] MEDS ORDERED: CLOPIDOGREL BISULFATE 75 MG TAB PO SCH (09:00)
[2022-06-13] MEDS ORDERED: POTASSIUM CHLORIDE CRTAB 20 MEQ TABCR PO SCH (09:00)
[2022-06-13] MEDS ORDERED: HEPARIN SOD 5,000 UNIT/0.5 ML VIAL SQ SCH (09:00)
[2022-06-13] MEDS ORDERED: ATORVASTATIN 20 MG TAB PO SCH (09:00)
[2022-06-13] MEDS ORDERED: STROKE PATIENT DISCHARGE STA (09:59)
--- NOTE | 2022-06-13 10:35 | Pharmacy Report ---
Pharmacist Stroke Counseling - Date of Service June 13, 2022 - Scope: Pharmacy has been consulted to provide medication discharge counseling for this patient admitted with occipital ischemic stroke as per the Pharmacist Discharge Counseling for Stroke Patients Protocol. - Medications on Discharge: Home Medications Medication Instructions Recorded Confirmed multivitamin (Daily Multi-Vitamin 1 tab PO QAM 04/25/19 06/12/22 tablet) omega 4-dit-med-fish oil 1,000 mg 2 cap PO BID 09/10/20 06/12/22 (120 mg-180 mg) capsule aspirin 81 mg tablet,delayed 81 mg PO QPM 06/12/22 06/12/22 release New Rx's Medication Instructions Recorded sildenafil 100 mg tablet 100 mg PO .COMPLEX PRN sexual 11/28/21 activity #18 tabs lisinopril 40 mg tablet 40 mg PO QAM #90 tabs 05/29/22 potassium chloride 20 mEq 20 meq PO QAM #90 tabs 05/29/22 tablet,extended release simvastatin 40 mg tablet 20 mg PO QPM #90 tabs 05/29/22 spironolactone 25 mg tablet 25 mg PO DAILY #90 tabs 05/29/22 atorvastatin 20 mg tablet 20 mg PO QAM #30 tabs 06/13/22 clopidogrel 75 mg tablet 75 mg PO QAM #30 tabs 06/13/22 losartan 50 mg tablet 50 mg PO QAM #30 tabs 06/13/22 - Action: The above medications, specifically ones for stroke treatment/prophylaxis, have been reviewed in detail with the patient prior to discharge. This includes indication, common adverse reactions, drug interactions, and medication administration. Medication counseling has been employed using the teach-back method to ensure understanding. - Outcome: The patient demonstrated understanding of the medications. Additional comments: Spoke over the phone with patient today- he was very pleasant and receptive to counseling. Reviewed new medications to prevent stroke including Plavix, Atorvastatin and Losartan. Explained that he should stop taking Aspirin, Simvastatin and Lisinopril and reasons behind this. Discussed why they are being used and common side effects in detail. Reviewed how to use the medications, what to do if doses are missed, common drug interactions, common side effects, what to watch out for while using the medications. Pt verbalized understanding. Thank you for allowing pharmacy to be involved in the care of this patient. Please call [phone] with any additional questions
--- NOTE | 2022-06-13 10:51 | XCELERA ---
[id number]
--- NOTE | 2022-06-13 22:36 | Electrocardiogram Report ---
Test Reason : Blood Pressure : / mmHG Vent. Rate : 058 BPM Atrial Rate : 058 BPM P-R Int : 160 ms QRS Dur : 088 ms QT Int : 438 ms P-R-T Axes : 048 -25 017 degrees QTc Int : 429 ms Sinus bradycardia Otherwise normal ECG When compared with ECG of 16-JUL-2015 09:49, No significant change was found Confirmed by Eitan Reinoso ([id number]) on 06/13/2022 10:35:52 PM Referred By: Confirmed By:Eitan Reinoso
--- NOTE | 2022-06-14 06:17 | Electrocardiogram Report ---
Test Reason : Blood Pressure : / mmHG Vent. Rate : 062 BPM Atrial Rate : 062 BPM P-R Int : 156 ms QRS Dur : 096 ms QT Int : 424 ms P-R-T Axes : 068 -14 041 degrees QTc Int : 430 ms Normal sinus rhythm Low voltage QRS Borderline ECG When compared with ECG of 12-JUN-2022 11:15, No significant change was found Confirmed by Eitan Reinoso ([id number]) on 06/14/2022 6:16:32 AM Referred By: REFERRED SELF Confirmed By:Eitan Reinoso
== END 2022-06-13 11:08 | disposition home or self-care (01) | DRG 66 ==
LOC: ED 10:55 → EDINP 13:00 → 2N 16:20

== ENCOUNTER 2025-01-24 05:12 | Observation (INO) ==
--- NOTE | 2024-12-28 11:14 | PAT Medication Instructions ---
Medication Instructions Date of Service December 28, 2024 Home Medications Medication Instructions Recorded BiPap Machine See Rx Instructions .Route 09/11/23 .COMPLEX #1 ea clopidogrel 75 mg tablet 75 mg PO QAM #90 tabs 02/22/24 potassium chloride 20 mEq 20 meq PO QAM #90 tabs 05/09/24 tablet,extended release atorvastatin 20 mg tablet 20 mg PO QAM #90 tabs 10/04/24 losartan 50 mg tablet 50 mg PO QAM #90 tabs 12/22/24 multivitamin (Daily Multi-Vitamin tablet) 1 tab PO QAM saw palmetto-pumpkin seed oil 160 mg capsule 2 cap PO BID clopidogrel 75 mg tablet 75 mg PO QAM potassium chloride 20 mEq tablet,extended release 20 meq PO QAM atorvastatin 20 mg tablet 20 mg PO QAM losartan 50 mg tablet 50 mg PO QAM magnesium oxide 400 mg PO QPM metoprolol succinate 25 mg tablet,extended release 24 hr 25 mg PO QPM sildenafil 100 mg tablet 100 mg PO UD PRN sexual activity spironolactone 25 mg tablet 25 mg PO QAM ASK your prescriber and surgeon clopidogrel 75 mg tablet 75 mg PO QAM (From anesthesia perspective, needs to be stopped 7 days before surgery. Please check if okay with doctor that prescribes this to you) STOP taking 2 weeks before surgery (or as soon as possible if surgery is within 2 weeks) saw palmetto-pumpkin seed oil 160 mg capsule 2 cap PO BID DO NOT take the morning of surgery multivitamin (Daily Multi-Vitamin tablet) 1 tab PO QAM potassium chloride 20 mEq tablet,extended release 20 meq PO QAM losartan 50 mg tablet 50 mg PO QAM sildenafil 100 mg tablet 100 mg PO UD PRN sexual activity spironolactone 25 mg tablet 25 mg PO QAM Take morning of surgery With a small sip of water, OTHERWISE NOTHING TO EAT OR DRINK AFTER MIDNIGHT: atorvastatin 20 mg tablet 20 mg PO QAM Take evening before surgery magnesium oxide 400 mg PO QPM metoprolol succinate 25 mg tablet,extended release 24 hr 25 mg PO QPM Other Notes If you have any questions please call us at [phone] or [phone] or [phone] or [phone]
--- NOTE | 2025-01-02 10:14 | Anesthesiology Consultation ---
Date of Service January 02, 2025 Assessment & Plan (1) Encounter for pre-operative examination: - cardiology office visit 09/20/24 [place]: "...mild to moderate nonocclusive multivessel coronary disease. No anginal symptoms...dyspnea is likely not ischemia related but obesity related...blood pressure is at target, his heart rate is slightly above target. We will optimize medical therapy for secondary prevention of coronary disease...takes Plavix in substitution for aspirin which is reasonable. Prior TIA. He will continue with high intensity statin therapy, losartan, and I will add a low-dose beta-zarina. Should be able to tolerate metoprolol succinate ER 25 mg daily...Dyspnea on exertion: Obesity and probably some deconditioning. He should try to increase his daily activity..." Case discussed in detail with Dr. Barnhart who advised nothing additional is needed and that patient can proceed as scheduled. - Outpatient joint assessment: Patient is currently scheduled for inpatient pathway. If re-evaluated and patient/surgeon requests outpatient pathway, patient is not a candidate for outpatient joint program. Chart Review Chart Review: Acceptable Risk for Surgery and Patient seen in Pre Admission Testing Teaching & Discussion Pre-Anesthesia Teaching/Discussion Notes: Instructed NPO after midnight before surgery, except medications with 15 cc of water. Medication instructions provided according to the PAT guidelines. History Surgery Operation Date: 01/24/25 07:00 Proposed Procedures p Left Total Hip Arthroplasty - Ziyad Marina MD Height/Weight Height: 5 ft 8 in Weight: 119.8 kg Allergies Allergy/AdvReac Type Severity Reaction Status Date / Time bacitracin AdvReac Intermediate neosporin Verified 12/28/24 09:40 - skin irritation neomycin AdvReac Intermediate neosporin Verified 12/28/24 09:40 - skin irritation polymyxin B AdvReac Intermediate neosporin Verified 12/28/24 09:40 - skin irritation Medications Home Medications Medication Instructions Recorded Confirmed Last Taken multivitamin (Daily Multi-Vitamin 1 tab PO QAM 04/25/19 12/28/24 06/12/22 tablet) BiPap Machine See Rx Instructions .Route 09/11/23 10/05/24 Unknown .COMPLEX #1 ea saw palmetto-pumpkin seed oil 160 2 cap PO BID 11/12/23 12/28/24 Unknown mg capsule clopidogrel 75 mg tablet 75 mg PO QAM #90 tabs 02/22/24 12/28/24 Unknown potassium chloride 20 mEq 20 meq PO QAM #90 tabs 05/09/24 12/28/24 Unknown tablet,extended release atorvastatin 20 mg tablet 20 mg PO QAM #90 tabs 10/04/24 12/28/24 Unknown losartan 50 mg tablet 50 mg PO QAM #90 tabs 12/22/24 12/28/24 Unknown magnesium oxide 400 mg PO QPM 12/28/24 12/28/24 Unknown metoprolol succinate 25 mg 25 mg PO QPM 12/28/24 12/28/24 Unknown tablet,extended release 24 hr sildenafil 100 mg tablet 100 mg PO UD PRN sexual activity 12/28/24 12/28/24 Unknown spironolactone 25 mg tablet 25 mg PO QAM 12/28/24 12/28/24 Unknown Past Medical History Medical History (Updated 01/03/25 @ 08:49 by Evi Delgado PA-C) BPH (benign prostatic hyperplasia) CAD (coronary artery disease) mild to moderate nonocclusive multivessel coronary disease, follows with Dr. Bermeo Colon polyp CVA (cerebral vascular accident) (~2020) 2020 after having covid--had vision loss for a few hours, completely resolved, no further issues--on plavix--follows with [facility] History of COVID-19 (~2020) 11/29/20. symptoms: cough and loss of taste/smell. History of DVT (deep vein thrombosis) (~2011) ~2011 Right leg DVT r/t extensive traveling at the time Hx of malignant neoplasm of skin s/p excision Hyperlipidemia Hypertension controlled, stable per pt On anticoagulant therapy plavix daily Sleep apnea BiPAP Patient denies h/o seizures, heart attack, heart failure, DM, or blood transfusions. Exercise / Class Metabolic Activity III < 4 Walking/Shop/Light housework (ambulates with cane, denies chest discomfort or shortness of breath with usual activities) Past Family History Family History Father Heart disease Other No family history of adverse response to anesthesia Denies family history of Ovarian cancer Prostate cancer Myocardial infarction Breast cancer Colorectal cancer Past Surgical History Surgical History H/O arthroscopic knee surgery left History of colonoscopy History of hip replacement right History of local excision of skin lesion Past Anesthesia History No Hx of Anesthesia Complications and Other (awareness during right hip replacement) History of PONV No Hx of PONV and No Hx of Motion Sickness Social History Smoking Status: Never smoker Do You Dip or Chew Tobacco: No Hx Alcohol Use: No Hx Substance Use: No substance use type: does not use Review of Systems Patient denies chest pain, shortness of breath, dyspnea on exertion, reflux, fever, chills, cough, wheezing, or palpitations. Physical Exam Vital Signs Vitals BP 125/85 P 81 TEMP 98.4 SP02 96% on RA RESP 19 Physical Patient resting comfortably in chair in no acute distress, alert and oriented, responding appropriately throughout visit Full cervical extension range of motion without pain TMD < 3 finger breadths Mallampati Score 3 Dentition: several caps/crowns, denies chipped or loose teeth, implants or bridges Lungs: normal respiratory effort. Good air movement, clear throughout to auscultation, no adventitious breath sounds Cardiac: regular rate and rhythm, no murmurs noted Carotid arteries: negative bruit bilat Lab Results Anesthesia Preop Results Results Anesthesia Widget: WBC 6.73 K/ul (4.8-10.8) 01/02/25 Hgb 15.5 g/dl (14.0-18.0) 01/02/25 Hct 47.5 % (42.0-52.0) 01/02/25 Plt 203 K/uL (130-400) 01/02/25 Na 139 mmol/L (136-145) 01/02/25 K 4.6 mmol/L (3.5-5.1) 01/02/25 Cl 104 mmol/L (98-107) 01/02/25 CO2 31 mmol/L (21-32) 01/02/25 BUN 19 mg/dl (6-23) 01/02/25 Creat 1.14 mg/dl (0.6-1.4) 01/02/25 Glucose Level 101 mg/dl (70-99(Fasting)) H 01/02/25 PT 10.6 Seconds (9.0-12.0) 01/02/25 PTT 25 Seconds (21-31) 01/02/25 INR 1.0 (0.9-1.1) 01/02/25 Blood Type O Positive 01/02/25 Antibody Screen NEGATIVE 01/02/25 Testing Electrocardiogram Date: 05/16/24 Sinus rhythm, rate 72 bpm Marked left axis deviation Chest X-Ray Date: 01/02/25 No acute findings. Echocardiogram Date: 06/13/22 EF 60-65% No LV regional wall motion abnormalities Moderate cLVH No significant valvular abnormalities Trace to small pericardial effusion without echocardiographic evidence of tamponade physiology Stress Test Date: 05/27/24 Gated myocardial perfusion imaging demonstrates normal size LV, normal wall motion, and normal EF calculated at 74%. There is a small to medium in size, mild to moderate intensity partially reversible MPI defect involving the distal inferoseptal, apical, and inferolateral myocardium. These findings suggest infarct with mild marta-infarct infarct ischemia versus attenuation artifact. This is a mildly abnormal study. No prior studies for comparison. Recommend discuss findings further with cardiology. Other Testing Cardiac CT 09/14/24 Moderate CAD with 50-69% stenosis proximal LAD Not hemodynamically significant Left main: < 25% stenosis LAD: 50-69% stenosis proximally, mid 25-49% stenosis and distal < 25% stenosis Cx: 25-49% stenosis mid; proximal < 25% stenosis RCA: small non dominant rudimentary RCA Small, simple appearing pericardial effusion Head and neck CTA 06/12/22 Unremarkable CTA of the head and neck without aneurysm, dissection, high-grade stenosis or arterial occlusion.
[2025-01-24] MEDS: LR 500ML BOLUS, THEN 15ML/HR IV SCH (05:58)
[2025-01-24] MEDS: FAMOTIDINE 20 MG TAB PO SCH (05:59)
[2025-01-24] MEDS: ACETAMINOPHEN 500 MG TAB PO SCH ×2 (05:59→14:27)
[2025-01-24] MEDS: METOCLOPRAMIDE HCL 10 MG TABLET PO SCH (05:59)
[2025-01-24] MEDS: CeleBREX 200 MG CAP PO SCH (05:59)
[2025-01-24] MEDS: LR 60ML/HR IV SCH (05:59)
[2025-01-24] MEDS ORDERED: BUPIVACAINE 0.5 % 5 MG/1 ML PF 10ML VIAL ONE (06:23)
[2025-01-24] MEDS ORDERED: ATROPINE SULFATE 0.1 MG/ML 10ML SYR IV PRN (06:27)
[2025-01-24] MEDS ORDERED: ePHEDrine sulfate 50 MG/ML AMP IV PRN (06:27)
[2025-01-24] MEDS ORDERED: ONDANSETRON INJ 2 MG/ML 2 ML VIAL IV PRN ×2 (06:27→09:57)
[2025-01-24] MEDS ORDERED: MIDAZOLAM HCL 1 MG/ML 2ML VIAL ONE ×2 (06:34→07:39)
[2025-01-24] MEDS: TRANEXAMIC ACID 1,000 MG **IV Pre-op IV SCH (06:41)
--- NOTE | 2025-01-24 06:44 | History & Physical Bridge Note ---
Date of Service January 24, 2025 History & Physical Bridge Note I have examined the patient, reviewed the History & Physical and in the interval since the performance of the History & Physical I have noted the following changes of clinical significance: no changes noted
[2025-01-24] MEDS: ceFAZolin 2000MG 2,000 MG/15 ML SYR IV SCH ×2 (07:01→14:27)
[2025-01-24] MEDS ORDERED: ePHEDrine sulfate 50 MG/5 ML SYR ONE (07:11)
[2025-01-24] MEDS ORDERED: PHENYLEPHRINE 100MCG/ML 5ML SYR ONE (07:11)
[2025-01-24] MEDS ORDERED: ePHEDrine sulfate 50 MG/ML AMP ONE (07:17)
[2025-01-24] MEDS ORDERED: VASOPRESSIN 20 UNIT/ML VIAL ONE (08:14)
--- NOTE | 2025-01-24 08:53 | Operative Report ---
[facility] Post Operative Report Pre & Post Diagnosis Operation Date: 01/24/25 07:00 Pre-Op Diagnosis: Osteoarthritis Hip Left Post-Op Diagnosis: Osteoarthritis Hip Left with chronic hip abductor avulsion I identified the patient and participated in the time-out.: Yes Procedure Operation Date: 01/24/25 07:00 Actual Procedures p Left Total Hip Arthroplasty, left hip abductor repair.(Left) - Ziyad Marina MD Surgeon Ziyad Marina MD Nonprofit Fundraiser Adrian Avila PA-C Estimated Blood Loss 100 Findings Consistent with Post-Op Diagnosis Operative findings were advanced left hip DJD. He did grade 4 [id number] disease of the femoral head and acetabulum. Moderate-sized joint effusion. He did have a chronic avulsion of his hip abductors which were repaired at the end of the case. Specimens Left femoral head sent for pathology. Anesthesia Type Spinal MAC Complications none Disposition Accompanied Patient To Recovery: No Indications Patient is a 74-year-old gentleman said a long history of orthopedic joint problems. He had his right hip replaced about 9 and half years ago. Over the past several years he developed increased pain discomfort in his left hip. X- rays and clinical exam were consistent with progressive left hip arthritis. Failed conservative treatment. He elected proceed with surgical management. At the time of the surgery it was noted that he had a chronic hip abductor avulsion. This was repaired with suture anchors. Description of Procedure Operative implants consist of: 1 Biomet G7 size 52 mm acetabular shell. 2. Parlin hole senior electronics technician. 3. 6.5 cancellous acetabular screws 1 of 35 mm in length by 30 mm length. 4. Highly cross-linked polyethylene liner with a 58 mm outer diameter and 40 mm diameter. 5. DePuy Karaya size 12 KLA femoral stem. 6. +5/40 mm ceramic articular ball. 7. Juggernaut suture anchor x 1. The patient was taken the op room, identified, placed on the operative table in the supine position. All conductors were appropriately padded. IV antibiotics fibra anesthesia team. A spinal anesthetic been implemented holding area. The patient was then placed in the right lateral decubitus position. An axillary roll was placed. Distal Birkett position was used for positioning. The left hip and leg were then prepped and draped in usual sterile fashion. A posterolateral approach to the left hip was then formed to a curvilinear incision centered over the greater trochanteric. Sharp dissection was got through subcutaneous tissue dental of the IT band gluteal fascia. The IT band gluteal fascia was sized longitudinally in line with skin incision. The underlying greater bursa was excised. At this point it was noted that his abductor muscles would have been chronically avulsed. The piriformis and external rotators along with the posterior hip joint capsule were then released from the posterior aspect of the hip as a single layer. Great care was taken throughout the procedure protect the sciatic nerve at all times. Hip was internally rotated. A femoral neck osteotomy cut was made with Final Cut about 15 mm above the lesser trochanter. Femoral head was removed and sent for pathol philip. The femur was retracted anteriorly. Attention drawn the acetabulum. The acetabular labrum was excised. The pulmonary fat was excised. Sequential reaming the acetabular was then performed again with size 49 and progressing up a 57. I reamed a little bit with a 58 reamer and then placed a 58 mm Biomet acetabular shell in about 40 degrees lateral opening and 20 degrees of anteversion. It was fixed with two 6.5 cancellous screws. A trial liner was placed. Attention drawn the femur. The proximal femur was entered with the cookie-cutter followed by canal finder. I then broached beginning with size 8 and progressed up to a 12. Excellent fit at 12. I did not think I can safely get the 13 down we stop there. We trialed the hip and the +5 articular ball provided full stability. The soft tissue tension was little bit lax but I did want a lengthen him at all if anything shortened meds see that this leg was already a little bit longer than the other leg preoperatively and clinically. Hip was stable. I did elect to use a 40 mm head in order to maximize his stability. We elect to place these implants. Nupathe all trial implants were removed. Upon removing the polyethylene liner, the screw was disengaged and broken out of the plastic. The screw and plastic were retrieved. There was a small piece of plastic which was felt to allow the screw to dislodge it. We irrigated and searched the wound extensively to make sure all plastic was removed. An apex hole senior electronics technician was placed. Highly cross- linked polyethylene liner was placed. A size 12 KLA femoral stem was impacted in position. A +5/40 mm ceramic articular ball was placed. Hip was located and once again found to be stable. Attention drawn toward closing. Wounds irrigated pulsatile lavage solution. I did inject locally with 60 cc of half percent Marcaine with epinephrine. The posterior capsule and extra rotators were then repaired through drill holes in the posterior trochanter with #2 Tycron suture. The greater trochanter was then scuffed up a bit with the cautery. I then placed a single juggernaut anchor. There were 2 sets of sutures with this. 1 set of sutures was repaired to the abductor directly anteriorly and then another set of sutures was directed to the abductor superiorly. These were tied down and approximated to the lateral aspect of the trochanter. The IT band gluteal fascia was then closed in 1 PDS suture running fashion through subcutaneous tissue then closed with 2 layers of the deep layer #2 Vicryl suture and subcutaneous tissues with 2-0 Dexon suture in a buried i nterrupted fashion. Skin was closed with skin bailee. A Prevena VAC dressing was applied. The patient was then transferred to the recovery room in stable condition. Patient tolerated procedure well and there were no complications. Adrian Avila, my physician real estate assistant, was present for the entire procedure. His assistance was essential and required for appropriate patient positioning, prepping and draping, surgical exposure, performing the technical details of the operation, placement the implants, closure of the wound, and placement of the sterile bandage. I attest to the content of the Intraoperative Record and any orders documented therein. Any exceptions are noted below.
--- NOTE | 2025-01-24 09:09 | XRay Report ---
XR hip 1V LT w pelvis CLINICAL HISTORY: IN PACU - Post Surgical COMPARISON: 09/24/2015 FINDINGS: Bilateral hip prostheses show no hardware complication. There is expected soft tissue gas and skin bailee on the left. IMPRESSION: Unremarkable postoperative exam. ACT 112: Negative or not required by law. Electronically signed by: Juan Jose Reyes M.D. 01/24/2025 9:08 AM
[2025-01-24] MEDS: fentaNYL citrate PF 100 MCG/2 ML VIAL IV PRN (09:37)
[2025-01-24] MEDS ORDERED: MAGNESIUM HYDROXIDE SUSP 30 ML UDC PO PRN (09:57)
[2025-01-24] MEDS ORDERED: bisacodyL 10 MG SUPP PR PRN (09:57)
[2025-01-24] MEDS ORDERED: NALOXONE HCL 0.4 MG/1 ML VIAL/CARP IV PRN (09:57)
[2025-01-24] MEDS ORDERED: ALUMINUM/MAGNESIUM SUSP 30 ML UDC PO PRN (09:57)
[2025-01-24] MEDS ORDERED: METOCLOPRAMIDE HCL INJ 5 MG/ML 2 ML VIAL IV PRN (09:57)
[2025-01-24] MEDS ORDERED: NON-FORMULARY MEDICATION (Bipap Machine misc) SCH (09:57)
[2025-01-24] MEDS ORDERED: NON-FORMULARY MEDICATION (Sildenafil [Viagra] 100 mg tablet) PO PRN (09:57)
[2025-01-24] MEDS: KETOROLAC 30 MG/ML VIAL ONE (10:07)
[2025-01-24] MEDS: traMADol HCL 50 MG TABLET ONE (10:08)
[2025-01-24] MEDS: KETOROLAC TROMETHAMINE 15 MG/ML VIAL IV SCH (10:09)
[2025-01-24] MEDS: traMADol HCL 50 MG TABLET PO PRN (10:11)
[2025-01-24] MEDS: HYDROmorphone INJ 0.5 MG/0.5 ML SYR IV PRN (10:52)
[2025-01-24] MEDS: BUPIVACAINE/EPINEPHRINE 0.5% MPF 1:200,000 30 ML VIAL ONE (11:43)
[2025-01-24] MEDS: SENNA 8.6 MG TAB PO SCH (12:15)
[2025-01-24] MEDS: DOCUSATE SODIUM 100 MG CAP PO SCH (12:15)
[2025-01-24] MEDS: POTASSIUM CHLORIDE CRTAB 20 MEQ TABCR PO SCH (12:15)
--- NOTE | 2025-01-24 12:57 | Anesthesiology Progress Note ---
Date of Service January 24, 2025 Anesthesia Post Procedure Vital Signs Vital Signs: Temp Pulse Resp BP BP Pulse Ox O2 Del Method 01/24/25 12:26 Room Air, CPAP 01/24/25 12:04 36.2 C L 89 18 112/71 95 Nasal Cannula 01/24/25 11:20 36.3 C L 92 H 16 116/75 95 Room Air, Nasal Cannula 01/24/25 10:40 91 H 18 109/63 92 Nasal Cannula 01/24/25 10:25 93 H 22 108/65 92 Nasal Cannula 01/24/25 10:10 99 H 15 108/70 93 Nasal Cannula 01/24/25 09:55 93 H 15 122/71 94 Room Air 01/24/25 09:40 97 H 16 107/60 96 Room Air 01/24/25 09:30 95 H 22 104/65 94 Room Air 01/24/25 09:20 36.4 C L 96 H 20 104/65 93 Room Air 01/24/25 09:10 89 18 93/62 L 96 Oxymask 01/24/25 09:00 86 21 100/61 96 Oxymask 01/24/25 08:50 90 17 117/62 97 Oxymask 01/24/25 08:42 36 C L 93 H 19 126/53 L 97 Oxymask 01/24/25 05:46 36.4 C L 91 H 91 H 137/87 94 Room Air O2 Flow Rate 01/24/25 12:26 01/24/25 12:04 2 01/24/25 11:20 01/24/25 10:40 2 01/24/25 10:25 2 01/24/25 10:10 2 01/24/25 09:55 01/24/25 09:40 01/24/25 09:30 01/24/25 09:20 01/24/25 09:10 3 01/24/25 09:00 6 01/24/25 08:50 6 01/24/25 08:42 6 01/24/25 05:46 Pain Intensity Left Hip: Pain Intensity: 5 Notes Mental Status: alert / awake / arousable Patient Amnestic to Procedure: Yes Nausea / Vomiting: adequately controlled Pain: adequately controlled Airway Patency, RR, SpO2: stable & adequate BP & HR: stable & adequate Hydration State: stable & adequate Neuraxial Anesthesia: was administered and sensory block is resolving Anesthetic Complications: no major complications apparent
[2025-01-24] MEDS: LOSARTAN POTASSIUM 50 MG TAB PO SCH (13:06)
[2025-01-24] MEDS: SPIRONOLACTONE 25 MG TAB PO SCH (13:06)
[2025-01-24] MEDS: MULTIVITAMIN TAB PO SCH (13:07)
[2025-01-24] MEDS: TAMSULOSIN HCL 0.4 MG CAP PO SCH (13:07)
[2025-01-24] MEDS: ATORVASTATIN 20 MG TAB PO SCH (13:07)
[2025-01-24] MEDS: TRANEXAMIC ACID / 0.7% NACL 1,000 MG/100 ML BAG IV SCH (14:27)
[2025-01-24] MEDS: ASCORBIC ACID 500 MG TAB PO SCH (16:02)
[2025-01-24] MEDS ORDERED: SENNA 8.6 MG TAB PO SCH (21:00)
[2025-01-24] MEDS: METOPROLOL SUCC 25MG EXT REL TAB PO SCH (21:54)
[2025-01-24] MEDS: MAGNESIUM OXIDE 400 MG TAB PO SCH (21:55)
[2025-01-25] MEDS: CLOPIDOGREL BISULFATE 75 MG TAB PO SCH (07:37)
[2025-01-25 07:55] VITALS: RESP 22
[2025-01-25] MEDS: dexAMETHasone 10 MG in SYRINGE 0 ML IV SCH (08:21)
--- NOTE | 2025-01-25 08:41 | Orthopedic Progress Note ---
Date of Service January 25, 2025 Assessment & Plan (1) S/P total left hip arthroplasty: (2) Aftercare following left hip joint replacement surgery: Plan 74-year-old gentleman POD# 1 s/p left total hip replacement, doing well overall. Pain is relatively well-controlled. Medically stable. Prosthetic hip is located. He is neurologically intact. Plan: 1. DVT prophylaxis w/ thigh-high TEDs, SCDs, Plavix 75 mg daily. 2. PT/OT as tolerated. WBAT on L LE. Left posterolateral approach total hip precautions/protocol. 3. Pain control doing well with current pain regimen. 4. Contacted [facility] [email or web address]. Was able to get the incisional VAC working properly again, and so at this point it should remain in place for 7 days postop, then removed and replaced with dry dressing as needed. 5. Disposition - plan to D/C to [facility] once authorization comes through. 6. F/u as scheduled w/ Dr. Marina's team for first post-op visit. Subjective Patient is POD# 1 s/p left total hip arthroplasty by Dr. Marina on 01/24/2025. Patient says his pain is well-controlled this morning. Denies CP, SOB, N/V, L LE paresthesia. He plans to go to the SNF/rehab side of [facility], and is working with case management on authorization for this. He is hoping to go there later today, but understands that this will depend on when the authorization comes through. He says that the Prevena VAC has been acting up and making a lot of noise recently. Review of Systems All systems reviewed & are unremarkable except as noted in HPI & below. Physical Exam GENERAL: AA&Ox3, NAD. Pleasant, affect is calm. Sitting in bed and appears comfortable. RESPIRATORY: Normal respiratory effort with no signs of distress. CHEST/AXILLA: Chest movement symmetrical. No deformities noted. CARDIOVASCULAR: No edema noted. SKIN: [place], warm and dry. MS/EXTREMITY: Hip dressing Prevena vac c/d/i; seal/suction area was mildly misaligned. ANNIE hose donned to contralateral LE. Thigh is soft, supple. Leg lengths are equal. + ankle dorsi/plantarflexion. NVI distally. Calf soft/NT. PT/DP pulses intact, 2+. Able to stand without assistance. Results & Data Results & Data Laboratory Results . Laboratory Results - last 48 hr 01/24/25 01/24/25 01/25/25 16:48 19:39 04:27 POC Glucose 150 H 141 H 110 H 01/25/25 07:35 POC Glucose 105 H Diagnostic Findings . Hip/Pelvis X-Ray 01/24/25 08:45 XR hip 1V LT w pelvis CLINICAL HISTORY: IN PACU - Post Surgical COMPARISON: 09/24/2015 FINDINGS: Bilateral hip prostheses show no hardware complication. There is expected soft tissue gas and skin bailee on the left. IMPRESSION: Unremarkable postoperative exam. ACT 112: Negative or not required by law. Electronically signed by: Juan Jose Reyes M.D. 01/24/2025 9:08 AM PG Care Time/CCT Total # of Minutes Spent Total Time Spent with Patient: Total time spent is greater than 50% in coordination of care (as documented) at patient's floor/unit and/or counseling patient: [place] [address] Post Operative Follow-Up Patient Type Established History Problem Focused Exam Expanded Problem Focused Medical Decision Making Straight Forward Diagnoses S/P total left hip arthroplasty Z96.642 Aftercare following left hip joint replacement surgery Z47.1; Z96.642
[2025-01-25 11:21] LABS: Basophils # (auto) 0.03 K/uL (0.00-0.20); Basophils % (auto) 0.3 %; Eosinophils # (auto) 0.01 K/uL (0.00-0.50); Eosinophils % (auto) 0.1 %; Hematocrit (blood only) 43.2 % (42.0-52.0); Hemoglobin 14.3 g/dl (14.0-18.0); Immature Granulocytes # (auto) 0.03 K/uL (0.01-0.20); Immature Granulocytes % (auto) 0.3 %; Lymphocytes # (auto) 0.49 K/uL (1.20-3.40); Lymphocytes % (auto) 4.9 %; Mean Corpuscular Hemoglobin 31.3 pg (25.0-34.0); Mean Corpuscular Hgb Conc 33.1 g/dL (32.0-36.0); Mean Corpuscular Volume 94.5 fL (80.0-100.0); Mean Platelet Volume 9.1 fL (9.4-12.4); Monocytes # (auto) 0.45 K/uL (0.11-0.59); Monocytes % (auto) 4.5 %; Neutrophils # (auto) 8.96 K/uL (1.40-6.50); Neutrophils % (auto) 89.9 %; Platelet Count 196 K/uL (130-400); RDW Coefficient of Variation 13.3 % (11.5-14.5); RDW Standard Deviation 46.4 fL (36.4-46.3); Red Blood Count 4.57 M/uL (4.70-6.10); White Blood Count 9.97 K/ul (4.8-10.8)
[2025-01-25 11:25] LABS: BUN Creatinine Ratio 18.9 (10-20); Calcium 9.2 mg/dl (8.6-10.3); Creatinine Clr Calc Pharmacy 59.6 ml/min; Potassium 4.8 mmol/L (3.5-5.1)
[2025-01-25 12:14] VITALS: BP 110/78; PULSE 72; TEMP 98.1; O2SAT 92
--- NOTE | 2025-01-27 15:11 | Discharge Summary ---
Date of Service January 27, 2025 Principal Diagnosis Same as "Discharge Diagnosis" noted below under Discharge Instructions. Discharge Exam GENERAL: AA&Ox3, NAD. Pleasant, affect is calm. Sitting in bed and appears comfortable. RESPIRATORY: Normal respiratory effort with no signs of distress. CHEST/AXILLA: Chest movement symmetrical. No deformities noted. CARDIOVASCULAR: No edema noted. SKIN: [place], warm and dry. MS/EXTREMITY: Hip dressing Prevena vac c/d/i; seal/suction area was mildly misaligned. ANNIE hose donned to contralateral LE. Thigh is soft, supple. Leg lengths are equal. + ankle dorsi/plantarflexion. NVI distally. Calf soft/NT. PT/DP pulses intact, 2+. Able to stand without assistance. Discharge Data Procedures Performed Operation Date: 01/24/25 07:00 Actual Procedures p Left Total Hip Arthroplasty, hip abductor repair.(Left) - Ziyad Marina MD Hospital Course (1) S/P total left hip arthroplasty: This is a 74 year old patient admitted on 01/24/25 and underwent total hip arthroplasty. He tolerated the procedure well and there were no complications. Transferred to the PACU post op and later to the orthopedic floor for further care. He was given ancef for antibiotic prophylaxis. He was also given ANNIE stockings, SCDs, and plavix for DVT prophylaxis. Hemoglobin, hematocrit, and vital signs were monitored during his hospital stay and remained stable. Did not require any blood transfusions. There were no complications during his hospital stay. By post op day #1 the patient was tolerating a regular diet, pain was reasonably controlled with oral pain medicine, and he was participating in physical therapy. On post op day #1 the patient was discharged home and set up with home health care. He was given printed discharge instructions including prescriptions for extra strength tylenol, cefadroxil, zofran, senokot, flomax, and tramadol. Continue hip precautions. Continue physical therapy, weight bearing as tolerated. Continue ANNIE stockings. Follow up approximately 2 weeks post op or sooner if there are problems or concerns. PG Care Time/CCT Total # of Minutes Spent Total Time Spent with Patient: Total time spent is greater than 50% in coordination of care (as documented) at patient's floor/unit and/or counseling patient: Discharge Plan Discharge Items Patient Disposition: Home - Self-Care Reason For Visit: Osteoarthritis Hip Left Discharge Diagnosis: Left Hip Replacement Activity: Per Instructions section Activity Comment: Follow/Obey hip precautions at all times Weightbearing: Full weightbearing Weightbearing Comment: Weightbear as tolerated obeying hip precautions Non-emergency contact: Surgeon Call non-emergency contact if: you have any medication questions Follow-up/Referrals: Flex Hobbs MD [Primary Care Provider] - Diet: Regular Addtl Attending Provider Instructions: ACTIVITY RECOMMENDATIONS: Diet: * You may resume previous diet. Physical Therapy: * Aggressive physical therapy is not usually needed. You will learn to take care of yourself safely and walk. * Follow the "Hip Precautions Instructions." * In some cases, the social work program coordinator at the hospital will arrange to have a therapist come to your house for the first couple of weeks to help you learn these skills. * You need to practice on your own or with the help of a family member as needed. * When you learn these skills, most of the therapy can be done on your own. Home Exercise: * You were shown a series of exercises in the hospital. Do these exercises three to four times each day including the exercises you were shown in physical therapy. Walking: * Get up and walk several times each day. For the first four weeks, try not to stand or walk for more than one hour at a time. If you do stand or walk for more than one hour, you will not hurt anything, but your leg will likely swell. * As you feel comfortable, you may change from the walker or crutches to a cane and then to independent walking. MEDICATIONS: New Medicine: * You will likely be taking one or more of these medicines: 1. Tramadol - Take, as directed, when you need it, every six hours to control your pain. 2. Plavix - Thins your blood to lessen the chance of forming a blood clot. * The most common side effects of pain medicine and iron are nausea and constipation. If nausea or constipation is too much of a problem or if you have any questions about your new medicines or doses, call [facility] at . We will try to help you manage these issues. "VERY IMPORTANT TO READ AND REVIEW" Pain: * The immediate post-operative period after hip replacement surgery is often quite painful. * You are given a prescription for pain medicine. You should take it, as directed, when you need it, especially before physical therapy and before going to bed. Pain that interferes with sleep is very common and can last several months. * You will likely need pain medicine for the first two to four weeks. It will not stop all of the pain. The pain will lessen and as you feel better, you may change to milder pain medicine such as Tylenol. * The most common side effects of pain medicine are nausea and constipation, so don't take more than you need. SPECIAL CARE INSTRUCTIONS: TEDs/Elastic Stockings: * The white elastic stockings help limit swelling and prevent blood clots from forming in your legs. The more you wear them, the more they work. * Wear them for six weeks. Incision Site Care: * Remove dressing postoperative day 7. Keep direct shower pressure off the incision site. * After showering, cover bailee with dry gauze and change daily or more frequently if the dressing is getting saturated with drainage. * May completely stop using bandage if wound is dry and no drainage * [place] are removed between 2 and 3 weeks post-op. If your follow-up appointment is made before 2 weeks, please have your appointment re- scheduled. It is too early to remove the bailee. Prevention of Infection: * Take antibiotics one hour before any dental cleaning, dental work, urological procedure, gastrointestinal procedure or any invasive surgery in order to prevent your new joint from getting infected. * You may get the antibiotics from the doctor performing the procedure or you may call our office at before and we will call in a prescription to the pharmacy of your choice. Things to Watch For: * Drainage from the incision site that occurs more than one week after your surgery. * Severely increased leg pain or swelling. * Increased redness at the incision site. * Fever above 102 degrees Fahrenheit. * Unusual chest pain or shortness of breath. * Unusual pain or burning with urination. Call [facility] at with any of the above problems or if you have any questions about your medicines or recovery. FOLLOW UP VISIT: Make an appointment to see your doctor for approximately two weeks after surgery for a progress check and staple removal by calling the office at . Pending Studies at Discharge: No Stand-Alone Forms: My [facility], Smoking Cessation Medications and DC Order Prescriptions: Continued potassium chloride 20 mEq tablet extended release 20 meq PO QAM Qty: 90 3RF atorvastatin 20 mg tablet 20 mg PO QAM Qty: 90 1RF tramadol 50 mg tablet 50 - 100 mg PO Q6 PRN (Reason: pain) Qty: 40 0RF Rx Instructions: Take as needed for pain ondansetron 4 mg tablet,disintegrating 4 mg PO Q8 PRN (Reason: nausea) Qty: 20 1RF Rx Instructions: Take as needed for nausea sennosides [Senokot] 8.6 mg tablet 8.6 mg PO BID 14 Days Qty: 28 0RF Rx Instructions: Take two times a day to prevent/treat constipation acetaminophen [Tylenol Extra Strength] 500 mg tablet 1,000 mg PO TID 30 Days Qty: 180 0RF Rx Instructions: Take 3 times per day to lessen pain. tamsulosin [Flomax] 0.4 mg capsule 0.4 mg PO DAILY Qty: 7 0RF Rx Instructions: Begin night BEFORE surgery to prevent urinary retention cefadroxil 500 mg capsule 500 mg PO BID 7 Days Qty: 14 0RF Rx Instructions: Take 1 cap twice a day to prevent infection BiPap Machine Misc See Rx Instructions .ROUTE .COMPLEX Qty: 1 0RF Rx Instructions: BiPAP 14/ with a backup rate of 8, [facility], mask fit patient comfort, supplies as needed for lifetime need; saw palmetto-pumpkin seed oil 160 mg capsule 2 cap PO BID multivitamin [Daily Multi-Vitamin] tablet 1 tab PO QAM magnesium oxide 400 mg magnesium Tablet 400 mg PO QPM spironolactone [Aldactone] 25 mg tablet 25 mg PO QAM metoprolol succinate [Toprol XL] 25 mg tablet extended release 24 hr 25 mg PO QPM losartan [Cozaar] 50 mg tablet 50 mg PO QAM clopidogrel [Plavix] 75 mg tablet 75 mg PO QAM sildenafil [Viagra] 100 mg tablet 100 mg PO UD PRN (Reason: sexual activity) Rx Instructions: 100 mg PO one tab 1/2 hour before needed PRN; Discharge Orders: Discharge Order (Routine); Ordered 01/25/25 Ordered By: Ziyad Ortega/Other Patient Handouts: After Hip Surgery- Getting Dressed, Hip Replace Home Recovery Admission Data Admit Date/Time: 01/24/25 08:45 Attending Provider: Ziyad Marina Admit Provider: Ziyad Marina Primary Care Provider: Flex Hobbs Other Providers: Prasanth Johansen Other Interventions: Discharge Summary Assessment (RN) Last Done: 01/25/25 13:51
== END 2025-01-25 14:07 | disposition home or self-care (01) ==
LOC: ASU 05:12 → PACUINP 05:12 → 3N 11:22